=== PATIENT | male | born 1995 | race Caucasian/White ===

== ENCOUNTER 2023-01-04 08:51 | Inpatient (IN) ==
--- NOTE | 2023-01-04 09:34 | CT Scan Report ---
CT OF THE HEAD WITHOUT CONTRAST CLINICAL HISTORY: Aphasia. COMPARISON STUDY: No previous studies for comparison. CT DOSE: 537.48 mGy.cm TECHNIQUE: Helical axial images of the head were obtained without IV contrast. Automated exposure con trol was utilized for the study. A dose lowering technique was utilized adhering to the principles o f ALARA. FINDINGS: No acute intracranial hemorrhage, midline shift or mass effect is present. The ventricular system is unremarkable. The basal cisterns are patent. No extra-axial collections are present. There are no findings to suggest acute dural sinus thrombosis or acute territorial infarct. No significant calvarial abnormalities are present. Visualized portions of the sinuses and mastoid air cells are rebeca ar. IMPRESSION: No acute intracranial findings. ACT 112: Negative or not required by law. Electronically signed by: Eric Tran M.D. 01/04/2023 9:32 AM
--- NOTE | 2023-01-04 10:00 | Emergency Department Note ---
History of Present Illness General Chief complaint: Mental Health Evaluation Stated complaint: LOSS OF BALANCE, SLURRED SPEECH, Time Seen by Provider: 01/04/23 09:07 History of Present Illness Provider complaint: Difficulty speaking 27-year-old male presents emergency department for difficulty speaking. Patient reports he smoked meth at 3 AM yesterday and since then has been having dif ficulty speaking. Patient is here with his mother and family. Mother states she is not sure if the patient truly smoked meth but the patient confirms she did smoke meth at 3 AM. The mother reports she is concerned the patient is having a stroke because he was having difficulty speaking. Mother also reports that the patient has a history of anxiety and has been under a lot of stress. When asked about thoughts of wanting to hurt himself the patient states he is not having thoughts of suicide. When interviewed in private the patient reports has been having thoughts of wanting to hang himself. No access to any firearms. No intentional overdoses. Home Medications Medication Instructions Recorded Confirmed Type escitalopram oxalate 10 mg tablet 10 mg PO DAILY #30 tabs 10/09/22 01/04/23 Rx (Lexapro) hydroxyzine HCl 25 mg tablet 25 mg PO TID 01/04/23 01/04/23 History Allergies Allergy/AdvReac Type Severity Reaction Status Date / Time No Known Allergies Allergy Verified 03/13/22 11:03 Past Med/Surg History Medical History Anxiety Marijuana use No longer abusing 07/2020. Panic attacks Surgical History Status post surgery right arm pin placement Family History Father Colorectal cancer, Onset Age: 40 Mother Gall bladder disease Other Alzheimer disease Diabetes Denies family history of Ovarian cancer Prostate cancer Myocardial infarction Breast cancer Social History Smoking Status: Never smoker Tobacco Type: Cigarettes Age Started Using Tobacco: 19; Second Hand Exposure: Yes; Hx Alcohol Use: Yes Alcohol type: beer Alcohol Intake Frequency: Monthly or Less Hx Substance Use: Yes (cannibas infrequently) Preferred Language: Uzbek Visual Impairment: No Limitations Hearing Ability: Normal Special Events Driver Required: No Beliefs That Will Affect Care: None marital status: Single Current Living Situation: Family current occupational status: employed current occupation: [employer] Feels Safe at Home: Yes Childhood Exposure to Second-Hand Smoke: No caffeine: No during the past year weight has: decreased > 10 lbs Dental Care, Regularly: No Physical Activity Frequency: 3-4 Times per Week Seatbelt Use: always Sunscreen Use: No Gender Identity: Male Physical Exam Vital Signs Vital Signs - 24 hr 01/04/23 08:55 01/04/23 09:12 Temperature 36.5 C Temperature Source Oral Pulse Rate 75 82 Respiratory Rate 16 Respiratory Effort / Characteristics Non-Labored Respiratory Depth Normal Blood Pressure 154/95 H Blood Pressure Mean 114 Pulse Oximetry 96 Oxygen Delivery Method Room Air Sepsis Recent Fever Within 48 Hours No Sepsis New/Unexplained Change in Mental Status No Sepsis Action Taken by Nursing No Action Required Physical Exam GENERAL: He is oriented to person, place, and time. He appears well-developed and well-nourished. He does not appear distressed. HENT: Exam performed. - Head: Normocephalic and atraumatic. - Right Ear: External ear normal. No mastoid erythema - Left Ear: External ear normal. No mastoid erythema - Mouth/Throat: The oropharynx is clear and moist. No trismus in the jaw. No dental abscesses or uvula swelling. No oropharyngeal exudate or tonsillar abscesses. EYES: Conjunctivae and EOM are normal. Pupils are equal, round, and reactive to light. Right eye exhibits no discharge. Left eye exhibits no discharge. No scleral icterus. NECK: Normal range of motion. Neck supple. No JVD present. No spinous process tenderness present. No carotid bruit present. No rigidity. No tracheal deviation and normal range of motion present. No Brudzinski's sign and no Kernig's sign noted. CV: Normal rate, regular rhythm, normal heart sounds and intact distal pulses. There is no peripheral edema. Palpable radial pulses bue. PULM/CHEST: Effort normal and breath sounds normal. No respiratory distress. No stridor. He has no wheezes. He has no rales. - Chest Wall: He exhibits no tenderness. MUSC/SKEL: Normal range of motion. There is no peripheral edema, tenderness or deformity. LYMPH: No cervical adenopathy. NEURO: He is alert and oriented to person, place, and time. He has normal strength. No cranial nerve deficit or sensory deficit. Coordination and gait normal. GCS eye subscore is 4. GCS verbal subscore is 5. GCS motor subscore is 6. Cerebellar tests wnl. NIHSS 0 SKIN: Skin is warm and dry. He is not diaphoretic. PSYCH: He has a normal mood and affect. Behavior is normal. Judgment and thought content normal. Course Course 0907: The patient was evaluated in room A10. A complete history and physical exam was performed 1255: Vital signs stable. Patient medically clear. CT of the head normal. UDS negative for methamphetamines. Patient met with case fitter Sherron and patient has a treatment plan without which she will plan on hanging himself on. It is felt patient would benefit from inpatient treatment. [facility] and patient bed search has begun. 1603: Case signed out to Dr. Saenz awaiting placment. Observation note Indication: Psych eval/placement Patient, with anxiety was first seen at 0907 hrs and the observation time began at 1255 hrs and was necessary in order to have psych evaluation completed . Administered Medications Discontinued Medications Nicotine (Nicotine 14 Mg/24 Hr Patch) Confirm Administered Dose 14 mg TD .STK- MED ONE Stop: 01/04/23 14:12 Last Admin: 01/04/23 14:12 Dose: 14 mg Documented By: NM Medical Decision Making Laboratory Data Attestation: I reviewed the patient's lab results. 01/04/23 09:35 01/04/23 09:35 Lab Results 01/04/23 01/04/23 01/04/23 Range/Units 09:32 09:35 09:35 WBC 11.81 H (4.8-10.8) K/ul RBC 5.50 (4.70-6.10) M/uL Hgb 16.8 (14.0-18.0) g/dl Hct 48.1 (42.0-52.0) % MCV 87.5 (80.0-100.0) fL MCH 30.5 (25.0-34.0) pg MCHC 34.9 (32.0-36.0) g/dL RDW Std Deviation 39.6 (36.4-46.3) fL RDW Coeff of Alexei 12.3 (11.5-14.5) % Plt Count 256 (130-400) K/uL MPV 11.1 (9.4-12.4) fL Immature Gran % (Auto) 0.3 % Neut % (Auto) 75.2 % Lymph % (Auto) 17.5 % [place] % (Auto) 6.3 % Eos % (Auto) 0.3 % Baso % (Auto) 0.4 % Neut # (Auto) 8.88 H (1.40-6.50) K/uL Lymph # (Auto) 2.07 (1.2-3.4) K/uL [place] # (Auto) 0.74 H (0.11-0.59) K/uL Eos # (Auto) 0.03 (0-0.50) K/uL Baso # (Auto) 0.05 (0-0.2) K/uL Immature Gran # (Auto) 0.04 (0.01-0.20) K/uL Sodium 140 (136-145) mmol/L Potassium 4.0 (3.5-5.1) mmol/L Chloride 104 (98-107) mmol/L Carbon Dioxide 27 (21-32) mmol/L Anion Gap 9 (3-11) BUN 10 (6-23) mg/dl Creatinine 0.98 (0.6-1.4) mg/dl Est Cr Clr Drug Dosing 107.1 ml/min Est GFR ( Amer) 122.8 ml/min Est GFR (Non-Af Amer) 106.0 ml/min BUN/Creatinine Ratio 10.2 (10-20) Glucose 99 (70-99(Fasting)) mg/dl Calcium 9.8 (8.6-10.3) mg/dl Total Bilirubin 1.0 (0.2-1.0) mg/dl AST 15 (13-39) U/L ALT 10 (7-52) U/L Alkaline Phosphatase 52 (34-104) U/L Total Protein 7.3 (6.0-8.3) gm/dl Albumin 4.8 (3.4-5.0) gm/dl Globulin 2.5 (2.5-4.0) gm/dl Albumin/Globulin Ratio 1.9 (0.9-2) TSH (0.300-4.500) uIu/ml Urine Color Urine Appearance (Clear) Urine pH (4.5-7.5) Ur Specific [place] (1.000-1.030) Urine Protein (Negative) Urine Glucose (UA) (Negative) Urine Ketones (Negative) Urine Blood (Negative) Urine Nitrite (Negative) Urine Bilirubin (Negative) Urine Urobilinogen (Negative) Ur Leukocyte Esterase (Negative) Salicylates (3.0-30) mg/dl Urine Opiates Screen (Neg) Ur Methadone, Qual (Neg) Acetaminophen (10-30) ug/ml Urine Barbiturates (Neg) Ur Phencyclidine (PCP) (Neg) U Amphetamin/Meth Scrn (Neg) MDMA (Ecstasy) Screen (Neg) U Benzodiazepines Scrn (Neg) Ur Cocaine Metabolite (Neg) U Marijuana (THC) Screen (Neg) Ethyl Alcohol mg/dL (<10.0) mg/dl SARS-CoV-2, RNA, NAAT NEGATIVE (NEGATIVE) 01/04/23 01/04/23 01/04/23 Range/Units 09:35 09:35 09:35 WBC (4.8-10.8) K/ul RBC (4.70-6.10) M/uL Hgb (14.0-18.0) g/dl Hct (42.0-52.0) % MCV (80.0-100.0) fL MCH (25.0-34.0) pg MCHC (32.0-36.0) g/dL RDW Std Deviation (36.4-46.3) fL RDW Coeff of Alexei (11.5-14.5) % Plt Count (130-400) K/uL MPV (9.4-12.4) fL Immature Gran % (Auto) % Neut % (Auto) % Lymph % (Auto) % [place] % (Auto) % Eos % (Auto) % Baso % (Auto) % Neut # (Auto) (1.40-6.50) K/uL Lymph # (Auto) (1.2-3.4) K/uL [place] # (Auto) (0.11-0.59) K/uL Eos # (Auto) (0-0.50) K/uL Baso # (Auto) (0-0.2) K/uL Immature Gran # (Auto) (0.01-0.20) K/uL Sodium (136-145) mmol/L Potassium (3.5-5.1) mmol/L Chloride (98-107) mmol/L Carbon Dioxide (21-32) mmol/L Anion Gap (3-11) BUN (6-23) mg/dl Creatinine (0.6-1.4) mg/dl Est Cr Clr Drug Dosing ml/min Est GFR ( Amer) ml/min Est GFR (Non-Af Amer) ml/min BUN/Creatinine Ratio (10-20) Glucose (70-99(Fasting)) mg/dl Calcium (8.6-10.3) mg/dl Total Bilirubin (0.2-1.0) mg/dl AST (13-39) U/L ALT (7-52) U/L Alkaline Phosphatase (34-104) U/L Total Protein (6.0-8.3) gm/dl Albumin (3.4-5.0) gm/dl Globulin (2.5-4.0) gm/dl Albumin/Globulin Ratio (0.9-2) TSH 1.580 (0.300-4.500) uIu/ml Urine Color Urine Appearance (Clear) Urine pH (4.5-7.5) Ur Specific [place] (1.000-1.030) Urine Protein (Negative) Urine Glucose (UA) (Negative) Urine Ketones (Negative) Urine Blood (Negative) Urine Nitrite (Negative) Urine Bilirubin (Negative) Urine Urobilinogen (Negative) Ur Leukocyte Esterase (Negative) Salicylates < 3.0 L (3.0-30) mg/dl Urine Opiates Screen (Neg) Ur Methadone, Qual (Neg) Acetaminophen < 3 L (10-30) ug/ml Urine Barbiturates (Neg) Ur Phencyclidine (PCP) (Neg) U Amphetamin/Meth Scrn (Neg) MDMA (Ecstasy) Screen (Neg) U Benzodiazepines Scrn (Neg) Ur Cocaine Metabolite (Neg) U Marijuana (THC) Screen (Neg) Ethyl Alcohol mg/dL < 10.0 (<10.0) mg/dl SARS-CoV-2, RNA, NAAT (NEGATIVE) 01/04/23 01/04/23 Range/Units 10:10 10:10 WBC (4.8-10.8) K/ul RBC (4.70-6.10) M/uL Hgb (14.0-18.0) g/dl Hct (42.0-52.0) % MCV (80.0-100.0) fL MCH (25.0-34.0) pg MCHC (32.0-36.0) g/dL RDW Std Deviation (36.4-46.3) fL RDW Coeff of Alexei (11.5-14.5) % Plt Count (130-400) K/uL MPV (9.4-12.4) fL Immature Gran % (Auto) % Neut % (Auto) % Lymph % (Auto) % [place] % (Auto) % Eos % (Auto) % Baso % (Auto) % Neut # (Auto) (1.40-6.50) K/uL Lymph # (Auto) (1.2-3.4) K/uL [place] # (Auto) (0.11-0.59) K/uL Eos # (Auto) (0-0.50) K/uL Baso # (Auto) (0-0.2) K/uL Immature Gran # (Auto) (0.01-0.20) K/uL Sodium (136-145) mmol/L Potassium (3.5-5.1) mmol/L Chloride (98-107) mmol/L Carbon Dioxide (21-32) mmol/L Anion Gap (3-11) BUN (6-23) mg/dl Creatinine (0.6-1.4) mg/dl Est Cr Clr Drug Dosing ml/min Est GFR ( Amer) ml/min Est GFR (Non-Af Amer) ml/min BUN/Creatinine Ratio (10-20) Glucose (70-99(Fasting)) mg/dl Calcium (8.6-10.3) mg/dl Total Bilirubin (0.2-1.0) mg/dl AST (13-39) U/L ALT (7-52) U/L Alkaline Phosphatase (34-104) U/L Total Protein (6.0-8.3) gm/dl Albumin (3.4-5.0) gm/dl Globulin (2.5-4.0) gm/dl Albumin/Globulin Ratio (0.9-2) TSH (0.300-4.500) uIu/ml Urine Color Yellow Urine Appearance Clear (Clear) Urine pH 7.0 (4.5-7.5) Ur Specific [place] 1.011 (1.000-1.030) Urine Protein Negative (Negative) Urine Glucose (UA) Negative (Negative) Urine Ketones 1+ H (Negative) Urine Blood Negative (Negative) Urine Nitrite Negative (Negative) Urine Bilirubin Negative (Negative) Urine Urobilinogen Negative (Negative) Ur Leukocyte Esterase Negative (Negative) Salicylates (3.0-30) mg/dl Urine Opiates Screen Neg (Neg) Ur Methadone, Qual Neg (Neg) Acetaminophen (10-30) ug/ml Urine Barbiturates Neg (Neg) Ur Phencyclidine (PCP) Neg (Neg) U Amphetamin/Meth Scrn Neg (Neg) MDMA (Ecstasy) Screen Neg (Neg) U Benzodiazepines Scrn Neg (Neg) Ur Cocaine Metabolite Neg (Neg) U Marijuana (THC) Screen Pos H (Neg) Ethyl Alcohol mg/dL (<10.0) mg/dl SARS-CoV-2, RNA, NAAT (NEGATIVE) Imaging Data Attestation: I personally reviewed and interpreted this imaging study as follows: My Impression: CT head: No [facility] Radiologist's Impression: Head CT 01/04/23 09:07 CT OF THE HEAD WITHOUT CONTRAST CLINICAL HISTORY: Aphasia. COMPARISON STUDY: No previous studies for comparison. CT DOSE: 537.48 mGy.cm TECHNIQUE: Helical axial images of the head were obtained without IV contrast. Automated exposure control was utilized for the study. A dose lowering technique was utilized adhering to the principles of ALARA. FINDINGS: No acute intracranial hemorrhage, midline shift or mass effect is present. The ventricular system is unremarkable. The basal cisterns are patent. No extra-axial collections are present. There are no findings to suggest acute dural sinus thrombosis or acute territorial infarct. No significant calvarial a bnormalities are present. Visualized portions of the sinuses and mastoid air cells are clear. IMPRESSION: No acute intracranial findings. ACT 112: Negative or not required by law. Electronically signed by: Eric Tran M.D. 01/04/2023 9:32 AM MDM Narrative 0907: The patient was evaluated in room A10. A complete history and physical exam was performed 1255: Vital signs stable. Patient medically clear. CT of the head normal. UDS negative for methamphetamines. Patient met with case fitter Sherron and patient has a treatment plan without which she will plan on hanging himself on. It is felt patient would benefit from inpatient treatment. [facility] and patient bed search has begun. 1603: Case signed out to Dr. Saenz awaiting placment. Observation note Indication: Psych eval/placement Patient, with anxiety was first seen at 0907 hrs and the observation time began at 1255 hrs and was necessary in order to have psych evaluation completed . Impression & Plan Anxiety Discharge Plan Visit Data Chief Complaint: Mental Health Evaluation Stated Complaint: LOSS OF BALANCE, SLURRED SPEECH, ED Provider: Rico Gan Discharge Problem: Anxiety Patient Disposition: Still a Patient Forms Stand Alone Forms: [facility], Suicide Prevention Resources Prescriptions Prescriptions: No Action escitalopram oxalate [Lexapro] 10 mg tablet 10 mg PO DAILY Qty: 30 5RF hydroxyzine HCl 25 mg tablet 25 mg PO TID Referrals Referrals: Yogesh Asif CRNP [Primary Care Provider] -
[2023-01-04 10:41] LABS: Basophils # (auto) 0.05 K/uL (0-0.2); Basophils % (auto) 0.4 %; Eosinophils # (auto) 0.03 K/uL (0-0.50); Eosinophils % (auto) 0.3 %; Hematocrit (blood only) 48.1 % (42.0-52.0); Hemoglobin 16.8 g/dl (14.0-18.0); Immature Granulocytes # (auto) 0.04 K/uL (0.01-0.20); Immature Granulocytes % (auto) 0.3 %; Lymphocytes # (auto) 2.07 K/uL (1.2-3.4); Lymphocytes % (auto) 17.5 %; Mean Corpuscular Hemoglobin 30.5 pg (25.0-34.0); Mean Corpuscular Hgb Conc 34.9 g/dL (32.0-36.0); Mean Corpuscular Volume 87.5 fL (80.0-100.0); Mean Platelet Volume 11.1 fL (9.4-12.4); Monocytes # (auto) 0.74 K/uL (0.11-0.59); Monocytes % (auto) 6.3 %; Neutrophils # (auto) 8.88 K/uL (1.40-6.50); Neutrophils % (auto) 75.2 %; Platelet Count 256 K/uL (130-400); RDW Coefficient of Variation 12.3 % (11.5-14.5); RDW Standard Deviation 39.6 fL (36.4-46.3); White Blood Count 11.81 K/ul (4.8-10.8)
[2023-01-04 10:42] LABS: Appearance Urine Clear (Clear); Bilirubin Urine Negative (Negative); Blood Urine Negative (Negative); Color Urine Yellow; Glucose Urine UA Negative (Negative); Ketones Urine 1+ (Negative); Leukocyte Esterase Urine Negative (Negative); Nitrite Urine Negative (Negative); Protein Urine Negative (Negative); Specific Gravity Urine 1.011 (1.000-1.030); Urobilinogen Urine Negative (Negative)
[2023-01-04 10:51] LABS: Acetaminophen < 3 ug/ml (10-30); Salicylate < 3.0 mg/dl (3.0-30)
[2023-01-04 11:32] LABS: Amphetamines+Metham, Urine Neg (Neg); Barbiturates, Urine Neg (Neg); Benzodiazepine, Urine Neg (Neg); Cocaine, Urine Neg (Neg); MDMA (Ecstacy), Urine Neg (Neg); Methadone, Urine Neg (Neg); Opiate, Urine Neg (Neg); Phencyclidine, Urine Neg (Neg)
[2023-01-04 11:55] LABS: Albumin Level 4.8 gm/dl (3.4-5.0); Calcium 9.8 mg/dl (8.6-10.3)
[2023-01-04 12:01] LABS: Albumin Globulin Ratio 1.9 (0.9-2); BUN Creatinine Ratio 10.2 (10-20); Creatinine Clr Calc Pharmacy 107.1 ml/min; Est GFR (African American) 122.8 ml/min; Globulin 2.5 gm/dl (2.5-4.0); Total Protein 7.3 gm/dl (6.0-8.3)
[2023-01-04] MEDS ORDERED: NICOTINE 14 MG/24 HR PATCH TD ONE (14:11)
[2023-01-04] MEDS ORDERED: BISMUTH SUBSALICYLATE LIQD 236 ML PO PRN (17:08)
[2023-01-04] MEDS ORDERED: ALUMINUM/MAGNESIUM SUSP 30 ML UDC PO PRN (17:08)
[2023-01-04] MEDS ORDERED: SODIUM CHLORIDE 0.65% NA SOLN 45 ML (OCEAN) PRN (17:08)
[2023-01-04] MEDS ORDERED: hydrOXYzine HCl 25 MG TAB PO PRN ×2 (17:08)
[2023-01-04] MEDS ORDERED: MAGNESIUM HYDROXIDE SUSP 30 ML UDC PO PRN (17:08)
[2023-01-04] MEDS ORDERED: ACETAMINOPHEN 325 MG TAB PO PRN (17:08)
[2023-01-04] MEDS: ESCITALOPRAM OXALATE 10 MG TAB PO SCH (19:21)
[2023-01-04] MEDS: OLANZapine 5 MG TABLET PO SCH (21:34)
[2023-01-04] MEDS ORDERED: NICOTINE POLACRILEX 2 MG GUM MT PRN (21:44)
[2023-01-05] MEDS: ESCITALOPRAM OXALATE 10 MG TAB PO SCH (08:00)
[2023-01-05] MEDS: NICOTINE 21 MG/24 HR TDSY TD SCH (08:00)
--- NOTE | 2023-01-05 10:55 | History & Physical ---
Date of Service January 05, 2023 Impression / Recommendations Protective Factors Assessment Employed: Yes ([employer]) Psychiatric History Identifying Data MICHAEL ALLISON is a 27-year-old M who currently lives in [] [alone] with [], has a history of [], and was admitted on 01/04/23 16:06 on a [201 voluntary] [302 involuntary] commitment for []. Chief Complaint "[]". Past Psychiatric History Current Psychiatric Diagnosis: Unspecified Mood Disorder History of Previous Suicide Attempt: Yes ("Years ago") Allergies Allergy/AdvReac Type Severity Reaction Status Date / Time No Known Allergies Allergy Verified 03/13/22 11:03 Home Medications Medication Instructions Recorded Confirmed Type escitalopram oxalate 10 mg tablet 10 mg PO DAILY #30 tabs 10/09/22 01/04/23 Rx (Lexapro) hydroxyzine HCl 25 mg tablet 25 mg PO TID 01/04/23 01/04/23 History Family History Family History of: Depression and Anxiety Family Mental Health History Comment: Maternal side of family Alcohol History Hx of Alcohol Use Over the Past 12 Months: Yes (Intermittent) AUDIT Total Score: 0 Smoking Use Have You Smoked or Used Tobacco Products in the Last 30 Days: Yes tobacco type: cigarettes and e-cigarettes Smoking Status: Current every day smoker Smoking packs per day: 1 Substance History Hx of Prescription Med Misuse Over the Past 12 Months: No Hx of Over the Counter Med Misuse Over the Past 12 Months: No Hx of Inhalent Misuse Over the Past 12 Months: No Hx of Organic Substance Use Over the Past 12 Months: Yes (Medical Cannabis) Hx of Illegal Substances/Street Drug Use Over Past 12 Months: No Problems as a Result of Past Substance Use: None Identified Personal History Living Arrangements: Apartment Highest Grade Completed: Some College Beliefs That Will Affect Care: None Patient History Medical History Anxiety Marijuana use No longer abusing 07/2020. Panic attacks Surgical History Status post surgery right arm pin placement Family History Father Colorectal cancer, Onset Age: 40 Mother Gall bladder disease Other Alzheimer disease Diabetes Denies family history of Ovarian cancer Prostate cancer Myocardial infarction Breast cancer Social History Smoking Status: Current every day smoker Tobacco Type: Cigarettes Age Started Using Tobacco: 19; Second Hand Exposure: Yes; Hx Alcohol Use: Yes Alcohol type: beer Alcohol Intake Frequency: Monthly or Less Hx Substance Use: Yes (cannibas infrequently) Preferred Language: Italian Communication Ability: Effective Visual Impairment: No Limitations Hearing Ability: Normal Qc Manager Required: No Beliefs That Will Affect Care: None marital status: Single Current Living Situation: Family current occupational status: employed 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 Feels Safe at Home: Yes Childhood Exposure to Second-Hand Smoke: No caffeine: No during the past year weight has: decreased > 10 lbs Dental Care, Regularly: No Physical Activity Frequency: 3-4 Times per Week Seatbelt Use: always Sunscreen Use: No Gender Identity: Male Assistive Devices: None Physical Exam Vital Signs (Past 24 Hours): Last Vital Signs Temp 36.5 C 01/05/23 06:43 Pulse 76 01/05/23 06:44 Resp 16 01/05/23 06:43 BP 127/86 01/05/23 06:44 Pulse Ox 97 01/04/23 17:33 O2 Del Method Room Air 01/04/23 17:33 Results & Data ([facility]) Laboratory Results Laboratory Results - last 24 hr 01/04/23 01/04/23 01/04/23 09:35 09:35 10:10 Sodium 140 Potassium 4.0 Chloride 104 Carbon Dioxide 27 Anion Gap 9 BUN 10 Creatinine 0.98 Est Cr Clr Drug Dosing 107.1 Est GFR ( Amer) 122.8 Est GFR (Non-Af Amer) 106.0 BUN/Creatinine Ratio 10.2 Glucose 99 Calcium 9.8 Total Bilirubin 1.0 AST 15 ALT 10 Alkaline Phosphatase 52 Total Protein 7.3 Albumin 4.8 Globulin 2.5 Albumin/Globulin Ratio 1.9 TSH 1.580 Urine Opiates Screen Neg Ur Methadone, Qual Neg Urine Barbiturates Neg Ur Phencyclidine (PCP) Neg U Amphetamin/Meth Scrn Neg MDMA (Ecstasy) Screen Neg U Benzodiazepines Scrn Neg Ur Cocaine Metabolite Neg U Marijuana (THC) Screen Pos H U Marijuana THC Carboxy Drug Screen Comment 01/04/23 10:10 Sodium Potassium Chloride Carbon Dioxide Anion Gap BUN Creatinine Est Cr Clr Drug Dosing Est GFR ( Amer) Est GFR (Non-Af Amer) BUN/Creatinine Ratio Glucose Calcium Total Bilirubin AST ALT Alkaline Phosphatase Total Protein Albumin Globulin Albumin/Globulin Ratio TSH Urine Opiates Screen Ur Methadone, Qual Urine Barbiturates Ur Phencyclidine (PCP) U Amphetamin/Meth Scrn MDMA (Ecstasy) Screen U Benzodiazepines Scrn Ur Cocaine Metabolite U Marijuana (THC) Screen U Marijuana THC Carboxy Pending Drug Screen Comment Pending Current Inpatient Medications Current Inpatient Medications: Current Inpatient Medications Acetaminophen (Acetaminophen 325 Mg Tab) 650 mg PO Q4H PRN PRN Reason: Headache or Minor Fever Stop: 02/03/23 17:07 Al Hydrox/Mg Hydrox/Simethicone (Aluminum/Magnesium Susp 30 Ml Udc) 30 ml PO Q4H PRN PRN Reason: GI Upset Stop: 02/03/23 17:07 Bismuth Subsalicylate (Bismuth Subsalicylate Liqd 236 Ml) 15 ml PO PRN PRN PRN Reason: Loose Stool Stop: 02/03/23 17:07 Escitalopram Oxalate (Escitalopram Oxalate 10 Mg Tab) 10 mg PO QAM [facility] Stop: 02/03/23 18:59 Last Admin: 01/05/23 08:00 Dose: 10 mg Hydroxyzine HCl (Hydroxyzine Hcl 25 Mg Tab) 50 mg PO HSZ PRN PRN Reason: Insomnia Stop: 02/03/23 17:07 Hydroxyzine HCl (Hydroxyzine Hcl 25 Mg Tab) 25 mg PO Q4H PRN PRN Reason: Anxiety Stop: 02/03/23 17:07 Magnesium Hydroxide (Magnesium Hydroxide Susp 30 Ml Udc) 30 ml PO DAILY PRN PRN Reason: Constipation Stop: 02/03/23 17:07 Miscellaneous (Remove Nicoderm Patch) 1 each N/A DAILY@0859 [facility] Stop: 02/04/23 08:58 Last Admin: 01/05/23 08:01 Dose: Not Given Nicotine (Nicotine 21 Mg/24 Hr Tdsy) 21 mg TD QAM [facility] Stop: 02/04/23 08:59 Last Admin: 01/05/23 08:00 Dose: 21 mg Nicotine Polacrilex (Nicotine Polacrilex 2 Mg Gum) 1 piece MT PRN PRN PRN Reason: nicotine cravings Stop: 02/03/23 21:43 Last Admin: 01/04/23 21:53 Dose: 1 piece Olanzapine (Olanzapine 5 Mg Tablet) 5 mg PO HS JOON Stop: 02/03/23 21:59 Last Admin: 01/04/23 21:34 Dose: 5 mg Sodium Chloride (Sodium Chloride 0.65% Na Soln 45 Ml (Brule)) 1 - 2 sprays NA PRN PRN PRN Reason: Nasal Dryness/Congestion Stop: 02/03/23 17:07
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
[2023-01-05] MEDS: OLANZapine 5 MG TABLET PO SCH (21:56)
[2023-01-06] MEDS: ESCITALOPRAM OXALATE 10 MG TAB PO SCH (08:21)
[2023-01-06] MEDS: NICOTINE 21 MG/24 HR TDSY TD SCH (08:21)
[2023-01-06 08:48] LABS: Marijuana Quant, GCMS Urine 3522 ng/mL (<5)
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
[2023-01-07] MEDS ORDERED: ESCITALOPRAM OXALATE 20 MG TAB PO SCH (09:00)
== END 2023-01-06 10:37 | disposition home or self-care (01) | DRG 880 ==
LOC: ED 08:51 → 3S 16:06

== ENCOUNTER 2024-04-20 14:21 | Observation (INO) ==
[2024-04-20] MEDS: SODIUM CHLORIDE 0.9% 1,000 ML IV ONE (15:12)
[2024-04-20] MEDS: ONDANSETRON INJ 2 MG/ML 2 ML VIAL IV STA (15:12)
[2024-04-20 15:39] LABS: Basophils # (auto) 0.07 K/uL (0.00-0.20); Basophils % (auto) 0.7 %; Eosinophils # (auto) 0.05 K/uL (0.00-0.50); Eosinophils % (auto) 0.5 %; Hematocrit (blood only) 48.3 % (42.0-52.0); Hemoglobin 16.9 g/dl (14.0-18.0); Immature Granulocytes # (auto) 0.03 K/uL (0.01-0.20); Immature Granulocytes % (auto) 0.3 %; Lymphocytes # (auto) 1.49 K/uL (1.20-3.40); Lymphocytes % (auto) 15.2 %; Mean Corpuscular Hemoglobin 28.9 pg (25.0-34.0); Mean Corpuscular Volume 82.7 fL (80.0-100.0); Mean Platelet Volume 11.1 fL (9.4-12.4); Monocytes # (auto) 0.77 K/uL (0.11-0.59); Monocytes % (auto) 7.9 %; Neutrophils # (auto) 7.38 K/uL (1.40-6.50); Neutrophils % (auto) 75.4 %; Platelet Count 266 K/uL (130-400); RDW Coefficient of Variation 12.1 % (11.5-14.5); RDW Standard Deviation 36.7 fL (36.4-46.3); Red Blood Count 5.84 M/uL (4.70-6.10); White Blood Count 9.79 K/ul (4.8-10.8)
--- NOTE | 2024-04-20 15:42 | XRay Report ---
PA CHEST WITH ABDOMINAL SERIES CLINICAL HISTORY: Vomiting. Postprandial abdominal pain. FINDINGS: A PA chest radiograph is compared to study dated 04/16/2024. The cardiomediastinal silhouette is unrema rkable. The lungs and pleural spaces are clear. No pneumothorax is seen. The bony thorax is grossly i ntact. Supine and erect abdominal radiographs are correlated with abdominal CT dated 04/11/2024. There is a n onobstructed abdominal bowel gas pattern. No evidence of intraperitoneal free air is seen. There are no abnormal abdominal calcifications. The lumbosacral spine and bony pelvis appear intact. IMPRESSION: 1. No active disease in the chest. 2. Nonobstructed abdominal bowel gas pattern. ACT 112: Negative or not required by law. Electronically signed by: Henry Burleson M.D. 04/20/2024 3:41 PM
[2024-04-20 15:46] LABS: Albumin Level 4.6 gm/dl (3.4-5.0); BUN Creatinine Ratio 9.5 (10-20); Bilirubin Direct 0.2 mg/dl (0-0.2); Bilirubin,Total 0.7 mg/dl (0.2-1.0); Calcium 9.2 mg/dl (8.6-10.3); Creatinine Clr Calc Pharmacy 98.6 ml/min; Est GFR (African American) 99.5 ml/min; Est GFR (Non-African American) 85.8 ml/min; Potassium 3.1 mmol/L (3.5-5.1); Total Protein 7.2 gm/dl (6.0-8.3)
--- NOTE | 2024-04-20 16:22 | History & Physical Report ---
Date of Service April 20, 2024 Assessment & Plan (1) Epigastric abdominal pain: Plan: Admit to med/telemetry Currently stable and nontoxic-appearing Has been having ongoing epigastric abdominal pain exacerbated after eating with associated nonbloody nausea and vomiting Pain is improved after vomiting Patient recently underwent EGD at [facility] on 04/14/2024 and was diagnosed with gastritis/esophagitis Patient also has a history of cannabis hyperemesis syndrome with last use on 04/16/2024 after arriving home from [facility] Symptoms are consistent with his previous episodes, no acute findings on x-ray of the chest/abdomen/pelvis today At this time his symptoms are likely multifactorial including cannabis hyperemesis syndrome, gastritis, and esophagitis Status post 4 mg IV Zofran and 1 L NSS in the ED Was started on maintenance NSS at 125 mL/h x 1 bag, will allow this to run for now as he is without signs of SERGEY Will start twice daily IV famotidine and pantoprazole Will give a dose of p.o. Carafate now, continue 4 times daily moving forward Will obtain EKG at the time of admission as he is hypokalemic, if QTc is WNL will order as needed Haldol Will need to continue to stressed the importance of marijuana and tobacco cessation, patient understands he needs to avoid these moving forward to prevent recurrence Out of bed for DVT prophylaxis N.p.o. except meds until pain improves, can then do a trial of clears AM CBC, CMP, mag (2) Gastritis: Plan: See epigastric abdominal pain plan (3) Cannabinoid hyperemesis syndrome: Plan: Will order topical capsaicin applied to the abdomen to see if this improves symptoms See epigastric abdominal pain plan (4) Hypokalemia: Plan: Potassium noted to be 3.1 today EKG in magnesium level were ordered at time of admission, will follow when obtained Will start with 3 bags of 10 mEq IV KCl on admission, will hold p.o. KCl at this time as this will likely exacerbate his current GI issues If needed can order ongoing maintenance fluids with addition of KCl Continue to monitor on order dispatcher a.m. electrolytes (5) Nausea & vomiting: Plan: If QTc is stable will order as needed Haldol as IV Zofran was ineffective (6) Bipolar 1 disorder: Plan: Denies suicidal and homicidal ideations Continue home benztropine, BuSpar, Lexapro, and oxcarbazepine Plan The patient was discussed with Dr. Fernández at the time of the admission History of Present Illness Chief Complaint: Recurrent epigastric pain, nausea/vomiting Primary Care Provider: BEREKET PCP Naresh is a 28-year-old male with a past medical history significant for bipolar 1 disorder, panic disorder, obsessive-compulsive disorder, cannabinoid hyperemesis syndrome, gastritis who presented to the [facility] ED on 04/20/2024 with complaints of ongoing epigastric abdominal pain exacerbated with after eating and recurrent nausea/vomiting. He was noted to be hypertensive on arrival at 156/118 and tachycardic at 97 but otherwise stable. Labs including CBC and CMP were significant for potassium of 3.1. Chest/abdominal x-ray was read as negative for acute findings in the chest and a nonobstructive abdominal bowel gas pattern. Prior to admission the patient was given 4 mg IV Zofran and 2 L normal saline. Patient was lying in bed in mild distress due to abdominal pain at the time of exam. He states that he was initially seen in the [facility] ED on 04/13/2024 due to the same symptoms he is experiencing today. He was admitted from 04/13/2024 - 04/15/2024 and underwent EGD on 04/14/2024. He explains that he was told findings were consistent with gastritis/esophagitis but that they could not rule out cannabis hyperemesis syndrome as an aggravating factor to his pain. When asked, he states that he last smoked marijuana on 04/16/2024 after arriving home from his last admission. Since then he has been having ongoing epigastric abdominal pain exacerbated with eating and recurrent nonbloody emesis. He denies coffee-ground emesis. States he recently quit smoking and has been able to continue taking his home medications as prescribed. States that his abdominal pain stays in the epigastric region and does not radiate. Denies recent fever/chills, chest pain, dysuria/hematuria, diarrhea/melena and recent trauma. Denies suicidal or homicidal ideations. When asked, he states that he was given Haldol while at [facility] and this mildly improved symptoms. Please refer to Dr. Fernández's Attestation for any changes to the treatment plan Allergies Allergy/AdvReac Type Severity Reaction Status Date / Time No Known Allergies Allergy Verified 04/16/24 18:58 Home Medications Medication Instructions Recorded Confirmed Type buspirone 10 mg tablet 10 mg PO BID 04/11/24 04/20/24 History olanzapine 20 mg tablet 20 mg PO HS 04/11/24 04/20/24 History oxcarbazepine 600 mg tablet 600 mg PO BID 04/11/24 04/20/24 History benztropine 1 mg tablet 1 mg PO BID 04/16/24 04/20/24 History dicyclomine 20 mg tablet 20 mg PO QID #20 tabs 04/16/24 04/20/24 Rx escitalopram oxalate 20 mg tablet 20 mg PO DAILY 04/16/24 04/20/24 History famotidine 20 mg tablet 20 mg PO BID #60 tabs 04/16/24 04/20/24 Rx nicotine (polacrilex) 2 mg gum 2 mg PO DIRECTED PRN .nicotine 04/16/24 04/20/24 History craving omeprazole 20 mg capsule,delayed 20 mg PO BID 04/16/24 04/20/24 History release promethazine 25 mg tablet 25 mg PO Q6H PRN nausea and 04/16/24 04/20/24 Rx vomiting #14 tabs sucralfate 100 mg/mL oral 10 ml PO QID #420 mL 04/16/24 04/20/24 Rx suspension (Carafate) Past Med/Surg History Problem List (Updated 04/20/24 @ 18:37 by Rico Gan MD) Hypokalemia (Acute) Epigastric abdominal pain (Acute) Gastritis (Acute) Dehydration (Acute) Cannabinoid hyperemesis syndrome (Acute) Dehydration (Acute) Nausea & vomiting (Acute) Abdominal pain (Acute) Bipolar 1 disorder Panic disorder provisional Obsessive compulsive disorder (Acute) provisional Medical History Marijuana use No longer abusing 07/2020. Surgical History Status post surgery right arm pin placement Family History Father Colorectal cancer, Onset Age: 40 Mother Gall bladder disease Other Alzheimer disease Diabetes Denies family history of Ovarian cancer Prostate cancer Myocardial infarction Breast cancer Social History Smoking Status: Current some day smoker Tobacco Type: Cigarettes and E-cigarettes / Vaping Age Started Using Tobacco: 19; Cigarettes Per Day: 10; Second Hand Exposure: Yes; Do You Dip or Chew Tobacco: No; Hx Alcohol Use: No Hx Substance Use: Yes Preferred Language: Polish Communication Ability: Effective Visual Impairment: No Limitations Hearing Ability: Normal [place] Required: No Beliefs That Will Affect Care: None marital status: Single Current Living Situation: Alone current occupational status: employed current occupation: [employer] Other Information That Helps Us Care for You: No Feels Safe at Home: Yes Safety Concerns: Feels Safe At This Time Childhood Exposure to Second-Hand Smoke: No caffeine: No during the past year weight has: decreased > 10 lbs Dental Care, Regularly: No Physical Activity Frequency: 3-4 Times per Week Seatbelt Use: always Sunscreen Use: No Gender Identity: Male Assistive Devices: None Physical Exam Physical Exam: Physical Exam: General: In mild distress due to pain, stated age, well-nourished, non-toxic appearing HEENT: Normocephalic, atraumatic, no scleral icterus, pupils around round, symmetrical, and reactive to light, dry mucus membranes, trachea midline, no thyromegaly Chest/Pulm: No respiratory distress, symmetrical chest expansion, clear breath sounds throughout Cardiac: RRR, no murmurs noted Abdomen: Negative for ascites and bruising, normoactive bowel sounds, soft, tender to palpation in the epigastric region without rebound tenderness, otherwise non-tender Musculoskeletal: Symmetrical and without signs of acute trauma, upper and lower extremities with full ROM, no atrophy, spasticity, or flaccidity Extremities: Radial, dorsalis pedis, and posterior tibial pulses are intact and symmetrical, no edema noted in the BL LE's Skin: Warm, dry, no rashes , lesions, or scars noted Neuro: Alert and oriented to person, place, month, year, and president, no focal defects, no tremors noted Psych: No acute distress, calm and cooperative during the exam Results & Data Results & Data Vital Signs (Past 12 Hours) Vital Signs Temp Pulse Resp BP Pulse Ox O2 Del Method 04/20/24 16:03 98 04/20/24 16:00 141/94 H 04/20/24 16:00 141/94 H 04/20/24 15:39 88 16 97 04/20/24 15:30 86 20 98 04/20/24 15:30 163/107 H 04/20/24 15:30 163/107 H 04/20/24 15:30 163/107 H 04/20/24 15:18 97 H 17 98 04/20/24 15:03 Room Air 04/20/24 15:00 149/119 H 04/20/24 14:51 92 H 21 95 04/20/24 14:50 159/123 H 04/20/24 14:50 159/123 H 04/20/24 14:34 36.9 C 122 H 18 156/118 H 95 Room Air Laboratory Results Abnormal lab results 04/20/24 Range/Units 15:13 Neut # (Auto) 7.38 H (1.40-6.50) K/uL [place] # (Auto) 0.77 H (0.11-0.59) K/uL Potassium 3.1 L (3.5-5.1) mmol/L Anion Gap 16 H (3-11) BUN/Creatinine Ratio 9.5 L (10-20) Glucose 106 H (70-99(Fasting)) mg/dl Lipase 9 L (11-82) U/L Diagnostic Findings Chest/Abdomen X-ray 04/20/24 15:03 PA CHEST WITH ABDOMINAL SERIES CLINICAL HISTORY: Vomiting. Postprandial abdominal pain. FINDINGS: A PA chest radiograph is compared to study dated 04/16/2024. The cardiomediastinal silhouette is unremarkable. The lungs and pleural spaces are clear. No pneumothorax is seen. The bony thorax is grossly intact. Supine and erect abdominal radiographs are correlated with abdominal CT dated 04/11/2024. There is a nonobstructed abdominal bowel gas pattern. No evidence of intraperitoneal free air is seen. There are no abnormal abdominal calcifications. The lumbosacral spine and bony pelvis appear intact. IMPRESSION: 1. No active disease in the chest. 2. Nonobstructed abdominal bowel gas pattern. ACT 112: Negative or not required by law. Electronically signed by: Henry Burleson M.D. 04/20/2024 3:41 PM ECG Additional Comments: Will obtain at the time of the admission Code Status & VTE Plan Code Status Full code VTE Prophylaxis Plan VTE Prophylaxis will be ordered: Yes Supervising Physician Co-Signing Physician Notes Patient seen and examined, chart reviewed, case discussed with Josias Leblanc PA-C and I agree with the assessment and plan as above except as otherwise noted Labs and images reviewed 28-year-old male history of bipolar 1 disorder, panic disorder, OCD, cannabinoid hyperemesis, and suicidality who presents to the ER 04/20 with persistent epigastric pain and inability to tolerate p.o while in the ER patient was given volume resuscitation, Pepcid, Protonix, and Zofran continued inability to tolerate p.o. and nausea/nonbloody vomiting. He is hypokalemic at 3.1, he does not have an SERGEY. Flatplate shows nonobstructed bowel gas. Does have a history of marijuana use. Does not show evidence of acute abdomen. Seen at bedside. Nausea is improved following above. He reports that he did have gastritis on his EGD. Nausea is much worse after meals. Does find that hot showers help wit h the nausea. Abdomen is soft/nontender at time bedside assessment. History of gastritis symptoms; continue Pepcid/Protonix/GI cocktail, Zofran. Patient's home olanzapine/oxcarbazepine/BuSpar are continued. QT is not prolonged. Will trial Haldol 2.5 mg x 1 for marijuana hyperemesis. Agree with above PG Care Time/CCT Total # of Minutes Spent Total Time Spent with Patient: Total time spent is greater than 50% in coordination of care (as documented) at patient's floor/unit and/or counseling patient: Coding [place] [address] INT INP/OBS CARE 3/75MIN Patient Type Established Medical Decision Making High Complexity Diagnoses Epigastric abdominal pain R10.13 Gastritis K29.00 Chronicity: acute Gastritis bleeding: without bleeding Gastritis type: unspecified gastritis Cannabinoid hyperemesis syndrome R11.2; F12.90 Hypokalemia E87.6 Nausea & vomiting R11.2 Vomiting type: unspecified Bipolar 1 disorder F31.9 (2) Gastritis Chronicity: acute Gastritis bleeding: without bleeding Gastritis type: unspecified gastritis Qualified Code(s): K29.00 - Acute gastritis without bleeding (5) Nausea & vomiting Vomiting type: unspecified Qualified Code(s): R11.2 - Nausea with vomiting, unspecified
[2024-04-20] MEDS: SODIUM CHLORIDE 0.9% 1,000 ML IV SCH (16:28)
[2024-04-20] MEDS ORDERED: CAPSAICIN CR 0.075% 60 GM TUBE EXT PRN (16:57)
[2024-04-20] MEDS: PANTOprazole 40 MG in SYRINGE 0 ML IV ONE (16:59)
[2024-04-20] MEDS: FAMOTIDINE 20MG IV PUSH 20 MG/5 ML SYR IV STA (16:59)
[2024-04-20] MEDS: SUCRALFATE 1 GM TAB PO STA (16:59)
[2024-04-20] MEDS: POTASSIUM CHLORIDE / WTR 10 MEQ/100 ML PLCT IV SCH (17:00)
[2024-04-20] MEDS: MoRPHine SULFATE 2 MG/ML CARP IV STA (17:35)
--- NOTE | 2024-04-20 18:37 | Emergency Department Note ---
History of Present Illness General Chief complaint: Abdominal Pain Stated complaint: NAUSEA, ABDOMINAL PAIN, POSSIBLE GASTRITIS Time Seen by Provider: 04/20/24 15:01 History of Present Illness Provider Complaint: + nausea, + vomiting, + diarrhea and + abdominal pain Onset (ago): day(s) 8 Description of Vomiting: no bilious, no blood-streaked, no bloody or no coffee grounds Description of Diarrhea: no tarry, no blood-streaked or no bloody (bright red) Associated Abdominal Pain: Yes Location of pain: + diffuse Severity: moderate Maximum Pain Intensity: 8 Current Pain Intensity: 8 Quality: + cramping, + stabbing, + aching, + sharp and + dull Pain Consistency: + intermittent Relieved By: + none Exacerbated By: + eating and + vomiting Context: + marijuana use; no foreign travel, no recent antibiotic use, no alcohol abuse, no anticoagulant use or no self induced Associated symptoms: no myalgias, no chest pain, no cough, no fever/chills, no headaches or no dysuria Home Medications Medication Instructions Recorded Confirmed Type buspirone 10 mg tablet 10 mg PO BID 04/11/24 04/20/24 History olanzapine 20 mg tablet 20 mg PO HS 04/11/24 04/20/24 History oxcarbazepine 600 mg tablet 600 mg PO BID 04/11/24 04/20/24 History benztropine 1 mg tablet 1 mg PO BID 04/16/24 04/20/24 History dicyclomine 20 mg tablet 20 mg PO QID #20 tabs 04/16/24 04/20/24 Rx escitalopram oxalate 20 mg tablet 20 mg PO DAILY 04/16/24 04/20/24 History famotidine 20 mg tablet 20 mg PO BID #60 tabs 04/16/24 04/20/24 Rx nicotine (polacrilex) 2 mg gum 2 mg PO DIRECTED PRN .nicotine 04/16/24 04/20/24 History craving omeprazole 20 mg capsule,delayed 20 mg PO BID 04/16/24 04/20/24 History release promethazine 25 mg tablet 25 mg PO Q6H PRN nausea and 04/16/24 04/20/24 Rx vomiting #14 tabs sucralfate 100 mg/mL oral 10 ml PO QID #420 mL 07/04/24 07/08/24 Rx suspension (Carafate) Allergies Allergy/AdvReac Type Severity Reaction Status Date / Time No Known Allergies Allergy Verified 04/16/24 18:58 Past Med/Surg History Problem List (Updated 04/20/24 @ 18:37 by Rico Gan MD) Hypokalemia (Acute) Epigastric abdominal pain (Acute) Gastritis (Acute) Dehydration (Acute) Cannabinoid hyperemesis syndrome (Acute) Dehydration (Acute) Nausea & vomiting (Acute) Abdominal pain (Acute) Bipolar 1 disorder Panic disorder provisional Obsessive compulsive disorder (Acute) provisional Medical History Marijuana use No longer abusing 07/2020. Surgical History Status post surgery right arm pin placement Family History Father Colorectal cancer, Onset Age: 40 Mother Gall bladder disease Other Alzheimer disease Diabetes Denies family history of Ovarian cancer Prostate cancer Myocardial infarction Breast cancer Social History Smoking Status: Current every day smoker Tobacco Type: Cigarettes Age Started Using Tobacco: 19; Second Hand Exposure: Yes; Do You Dip or Chew Tobacco: No; Hx Alcohol Use: Yes Alcohol type: beer Alcohol Intake Frequency: Monthly or Less Hx Substance Use: Yes (cannibas infrequently) Preferred Language: Icelandic Communication Ability: Effective Visual Impairment: No Limitations Hearing Ability: Normal [employer] Helper Required: No Beliefs That Will Affect Care: None marital status: Single Current Living Situation: Family current occupational status: employed 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 Feels Safe at Home: Yes Childhood Exposure to Second-Hand Smoke: No caffeine: No during the past year weight has: decreased > 10 lbs Dental Care, Regularly: No Physical Activity Frequency: 3-4 Times per Week Seatbelt Use: always Sunscreen Use: No Gender Identity: Male Assistive Devices: None Physical Exam 2 Vital Signs: Vital Signs - 24 hr 04/20/24 14:34 04/20/24 14:50 04/20/24 14:50 Temperature 36.9 C Temperature Source Temporal Artery Sc an Pulse Rate 122 H Pulse Rate from Sp O2 Sensor Respiratory Rate 18 Respiratory Effort / Characteristics Non-Labored Sponta neous Respiratory Depth Normal Blood Pressure 156/118 H 159/123 H 159/123 H Blood Pressure Sun n 130 132 132 Blood Pressure Pos ition Sitting Pulse Oximetry 95 Oxygen Delivery Me thod Room Air Sepsis Recent Feve r Within 48 Hours No Sepsis New/Unexpla ined Change in Men ro Status No Sepsis Action Take n by Nursing No Action Required 04/20/24 14:51 04/20/24 15:00 04/20/24 15:03 Temperature Temperature Source Pulse Rate 92 H Pulse Rate from Sp O2 Sensor 92 H Respiratory Rate 21 Respiratory Effort / Characteristics Respiratory Depth Blood Pressure 149/119 H Blood Pressure Sun n 131 Blood Pressure Pos ition Pulse Oximetry 95 Oxygen Delivery Me thod Room Air Sepsis Recent Feve r Within 48 Hours Sepsis New/Unexpla ined Change in Men ro Status Sepsis Action Take n by Nursing 04/20/24 15:18 04/20/24 15:30 04/20/24 15:30 Temperature Temperature Source Pulse Rate 97 H Pulse Rate from Sp O2 Sensor 96 H Respiratory Rate 17 Respiratory Effort / Characteristics Respiratory Depth Blood Pressure 163/107 H 163/107 H Blood Pressure Sun n 127 127 Blood Pressure Pos ition Pulse Oximetry 98 Oxygen Delivery Me thod Sepsis Recent Feve r Within 48 Hours Sepsis New/Unexpla ined Change in Men ro Status Sepsis Action Take n by Nursing 04/20/24 15:30 04/20/24 15:30 04/20/24 15:39 Temperature Temperature Source Pulse Rate 86 88 Pulse Rate from Sp O2 Sensor 89 86 Respiratory Rate 20 16 Respiratory Effort / Characteristics Respiratory Depth Blood Pressure 163/107 H Blood Pressure Sun n 127 Blood Pressure Pos ition Pulse Oximetry 98 97 Oxygen Delivery Me thod Sepsis Recent Feve r Within 48 Hours Sepsis New/Unexpla ined Change in Men ro Status Sepsis Action Take n by Nursing 04/20/24 16:00 04/20/24 16:00 04/20/24 16:03 Temperature Temperature Source Pulse Rate Pulse Rate from Sp O2 Sensor 105 H Respiratory Rate Respiratory Effort / Characteristics Respiratory Depth Blood Pressure 141/94 H 141/94 H Blood Pressure Sun n 111 111 Blood Pressure Pos ition Pulse Oximetry 98 Oxygen Delivery Me thod Sepsis Recent Feve r Within 48 Hours Sepsis New/Unexpla ined Change in Men ro Status Sepsis Action Take n by Nursing 04/20/24 17:42 Temperature Temperature Source Pulse Rate 84 Pulse Rate from Sp O2 Sensor Respiratory Rate 18 Respiratory Effort / Characteristics Respiratory Depth Blood Pressure 177/84 H Blood Pressure Sun n Blood Pressure Pos ition Pulse Oximetry 99 Oxygen Delivery Me thod Room Air Sepsis Recent Feve r Within 48 Hours Sepsis New/Unexpla ined Change in Men ro Status Sepsis Action Take n by Nursing Physical Exam: Physical Exam GENERAL: She is oriented to person, place, and time. She appears well-developed and well-nourished. She does not appear distressed. HENT: Exam performed. -Head: Normocephalic and atraumatic. -Right Ear: External ear normal. No mastoid erythema -Left Ear: External ear normal. No mastoid erythema -Mouth/Throat: The oropharynx is clear and moist. No trismus in the jaw. No dental abscesses or uvula swelling. No oropharyngeal exudate or tonsillar abscesses. EYES: Conjunctivae and EOM are normal.Right eye exhibits no discharge. Left eye exhibits no discharge. No scleral icterus. NECK: Normal range of motion. Neck supple. No JVD present. No tracheal deviation and normal range of motion present. CV: Normal rate, regular rhythm, normal heart sounds and intact distal pulses. There is no peripheral edema. Palpable radial pulses bue. PULM/CHEST: Effort normal and breath sounds normal. No respiratory distress. No stridor. She has no wheezes. She has no rales. -Chest Wall: She exhibits no tenderness. ABD: The abdomen is soft. Bowel sounds are normal. She has no distension. No mass is present. There is no tenderness. There is no rebound, no guarding, no Barry's sign and no tenderness at McBurney's point. Rovsig negative MUSC/SKEL: Normal range of motion. There is no peripheral edema, tenderness or deformity. NEURO: Motor and sensation grossly intact. SKIN: Skin is warm and dry. She is not diaphoretic. PSYCH: She has a normal mood and affect. Behavior is normal. Judgment and thought content normal. Course Course 1501: The patient was evaluated in room C6. A complete history and physical exam was performed Cardiac monitoring: An order was placed for continuous cardiac monitoring. The monitor shows a rate of 90 with sinus rhythm interpreted by me 1612: Vital signs stable. Labs and imaging within normal limits. Patient states he cannot go home and keep vomiting. Patient be admitted to the [facility] service for intractable nausea vomiting. Administered Medications Sodium Chloride (Nss) 1,000 mls @ 125 mls/hr IV .Q8H JOON Stop: 04/21/24 00:14 Last Admin: 04/20/24 16:28 Dose: 125 mls/hr Documented By: LANA Potassium Chloride (K Alexx / Wtr) 10 meq in 100 mls @ 100 mls/hr IV Q1H JOON Stop: 04/20/24 19:29 Last Admin: 04/20/24 17:00 Dose: 100 mls/hr Documented By: LANA Discontinued Medications Sodium Chloride (Nss) 1,000 mls @ 999 mls/hr IV .Q1H1M ONE Stop: 04/20/24 16:02 Last Infusion: 04/20/24 16:14 Dose: Infused Documented By: Admin: 04/20/24 15:12 Dose: 999 mls/hr Documented By: LANA Pantoprazole Sodium 40 mg/ (Syringe) 10 mls @ 5 mls/min IV NOW ONE Stop: 04/20/24 16:31 Last Admin: 04/20/24 16:59 Dose: 5 mls/min Documented By: LANA Famotidine (Pepcid 20mg Iv Push) 20 mg in 5 mls @ 2.5 mls/min IV NOW STA Stop: 04/20/24 16:24 Last Admin: 04/20/24 16:59 Dose: 2.5 mls/min Documented By: LANA Morphine Sulfate (Morphine Sulfate 2 Mg/Ml Carp) 2 mg IV NOW STA Stop: 04/20/24 17:21 Last Admin: 04/20/24 17:35 Dose: 2 mg Documented By: LANA Ondansetron HCl (Ondansetron Inj 2 Mg/Ml 2 Ml Vial) 4 mg IV NOW STA Stop: 04/20/24 15:03 Last Admin: 04/20/24 15:12 Dose: 4 mg Documented By: LANA Sucralfate (Sucralfate 1 Gm Tab) 1 gm PO NOW STA Stop: 04/20/24 16:43 Last Admin: 04/20/24 16:59 Dose: 1 gm Documented By: LANA Medical Decision Making Medical Records Attestation: I reviewed the patient's medical records. External medical records reviewed. This is patient's third visit to the emergency department in the last 10 days. Patient had a negative CT abdomen pelvis on April 11, 2024. Labs with fluids. Patient's previous diagnoses include cannabis hyperemesis syndrome. Laboratory Data Attestation: I reviewed the patient's lab results. 04/20/24 15:13 04/20/24 15:13 Lab Results 04/20/24 Range/Units 15:13 WBC 9.79 (4.8-10.8) K/ul RBC 5.84 (4.70-6.10) M/uL Hgb 16.9 (14.0-18.0) g/dl Hct 48.3 (42.0-52.0) % MCV 82.7 (80.0-100.0) fL MCH 28.9 (25.0-34.0) pg MCHC 35.0 (32.0-36.0) g/dL RDW Std Deviation 36.7 (36.4-46.3) fL RDW Coeff of Alexei 12.1 (11.5-14.5) % Plt Count 266 (130-400) K/uL MPV 11.1 (9.4-12.4) fL Immature Gran % (Auto) 0.3 % Neut % (Auto) 75.4 % Lymph % (Auto) 15.2 % Garrett % (Auto) 7.9 % Eos % (Auto) 0.5 % Baso % (Auto) 0.7 % Neut # (Auto) 7.38 H (1.40-6.50) K/uL Lymph # (Auto) 1.49 (1.20-3.40) K/uL Garrett # (Auto) 0.77 H (0.11-0.59) K/uL Eos # (Auto) 0.05 (0.00-0.50) K/uL Baso # (Auto) 0.07 (0.00-0.20) K/uL Immature Gran # (Auto) 0.03 (0.01-0.20) K/uL Sodium 138 (136-145) mmol/L Potassium 3.1 L (3.5-5.1) mmol/L Chloride 99 (98-107) mmol/L Carbon Dioxide 23 (21-32) mmol/L Anion Gap 16 H (3-11) BUN 11 (6-23) mg/dl Creatinine 1.16 (0.6-1.4) mg/dl Est Cr Clr Drug Dosing 98.6 ml/min Est GFR ( Amer) 99.5 ml/min Est GFR (Non-Af Amer) 85.8 ml/min BUN/Creatinine Ratio 9.5 L (10-20) Glucose 106 H (70-99(Fasting)) mg/dl Calcium 9.2 (8.6-10.3) mg/dl Magnesium 2.0 (1.7-2.4) mg/dl Total Bilirubin 0.7 (0.2-1.0) mg/dl Direct Bilirubin 0.2 (0-0.2) mg/dl AST 20 (13-39) U/L ALT 29 (7-52) U/L Alkaline Phosphatase 75 (34-104) U/L Total Protein 7.2 (6.0-8.3) gm/dl Albumin 4.6 (3.4-5.0) gm/dl Lipase 9 L (11-82) U/L Imaging Data Attestation: I personally reviewed and interpreted this imaging study as follows: My Impression: Acute abdominal series: Chest x-ray negative. Airway clear. No pneumothorax. No consolidation. No cardiomegaly or cephalization.. No free air under the diaphragm. No fractures of the skeletal structures. Nonspecific bowel gas pattern no air-fluid levels. Radiologist's Impression: Chest/Abdomen X-ray 04/20/24 15:03 PA CHEST WITH ABDOMINAL SERIES CLINICAL HISTORY: Vomiting. Postprandial abdominal pain. FINDINGS: A PA chest radiograph is compared to study dated 04/16/2024. The cardiomediastinal silhouette is unremarkable. The lungs and pleural spaces are clear. No pneumothorax is seen. The bony thorax is grossly intact. Supine and erect abdominal radiographs are correlated with abdominal CT dated 04/11/2024. There is a nonobstructed abdominal bowel gas pattern. No evidence of intraperitoneal free air is seen. There are no abnormal abdominal calcifications. The lumbosacral spine and bony pelvis appear intact. IMPRESSION: 1. No active disease in the chest. 2. Nonobstructed abdominal bowel gas pattern. ACT 112: Negative or not required by law. Electronically signed by: Henry Burleson M.D. 04/20/2024 3:41 PM ECG Data Attestation: I personally reviewed and interpreted this ECG as follows: Rate (beats per minute): 97 Rhythm: normal sinus Findings: no ST depression, no ST elevation or no prolonged QT Additional Comments: [place] 88. No delta wave. [facility] Narrative 1501: The patient was evaluated in room C6. A complete history and physical exam was performed Cardiac monitoring: An order was placed for continuous cardiac monitoring. The monitor shows a rate of 90 with sinus rhythm interpreted by me 1612: Vital signs stable. Labs and imaging within normal limits. Patient states he cannot go home and keep vomiting. Patient be admitted to the [facility] service for intractable nausea vomiting. Impression & Plan Cannabinoid hyperemesis syndrome, Nausea & vomiting, Hypokalemia Discharge Plan Visit Data Chief Complaint: Abdominal Pain Stated Complaint: NAUSEA, ABDOMINAL PAIN, POSSIBLE GASTRITIS ED Provider: Rico Gan Discharge Problem: Cannabinoid hyperemesis syndrome, Nausea & vomiting, Hypokalemia Patient Disposition: Admitted As Inpatient Discharge Instructions Interventions: ED Discharge Assessment Last Done: 04/20/24 17:42 Forms Stand Alone Forms: My [facility] Prescriptions Prescriptions: No Action buspirone 10 mg tablet 10 mg PO BID oxcarbazepine 600 mg tablet 600 mg PO BID Rx Instructions: PER PT "TAKE 600 MG AT HS". olanzapine 20 mg tablet 20 mg PO HS nicotine (polacrilex) 2 mg gum 2 mg PO DIRECTED PRN (Reason: .nicotine craving) benztropine 1 mg tablet 1 mg PO BID omeprazole 20 mg capsule,delayed release(DR/EC) 20 mg PO BID escitalopram oxalate 20 mg tablet 20 mg PO DAILY sucralfate [Carafate] 100 mg/mL suspension 10 ml PO QID Qty: 420 0RF Rx Instructions: swish in mouth and swallow; use after food/drink: May substitute tablets as a slurry. famotidine 20 mg tablet 20 mg PO BID Qty: 60 0RF dicyclomine 20 mg tablet 20 mg PO QID Qty: 20 0RF promethazine 25 mg tablet 25 mg PO Q6H PRN (Reason: nausea and vomiting) Qty: 14 0RF Referrals Referrals: Grace Smith DO [Primary Care Provider] -
[2024-04-20] MEDS ORDERED: HALOPERIDOL LACTATE 5 MG/ML 1 ML VIAL IV PRN (19:36)
[2024-04-20] MEDS: NICOTINE 14 MG/24 HR PATCH TD SCH (20:50)
[2024-04-20] MEDS: SUCRALFATE 1 GM/10 ML UDC PO SCH (20:50)
[2024-04-20] MEDS: PANTOprazole 40 MG in SYRINGE 0 ML IV SCH (20:50)
[2024-04-20] MEDS: LORazepam 1 MG in SYRINGE 0.5 ML IV STA (22:53)
[2024-04-21] MEDS: FAMOTIDINE 20MG IV PUSH 20 MG/5 ML SYR IV SCH (05:28)
[2024-04-21 07:54] LABS: Basophils # (auto) 0.06 K/uL (0.00-0.20); Eosinophils # (auto) 0.14 K/uL (0.00-0.50); Eosinophils % (auto) 2.3 %; Hemoglobin 15.1 g/dl (14.0-18.0); Immature Granulocytes # (auto) 0.03 K/uL (0.01-0.20); Immature Granulocytes % (auto) 0.5 %; Lymphocytes # (auto) 2.17 K/uL (1.20-3.40); Lymphocytes % (auto) 35.3 %; Mean Corpuscular Hemoglobin 29.3 pg (25.0-34.0); Mean Corpuscular Hgb Conc 35.1 g/dL (32.0-36.0); Mean Corpuscular Volume 83.5 fL (80.0-100.0); Monocytes # (auto) 0.67 K/uL (0.11-0.59); Monocytes % (auto) 10.9 %; Neutrophils # (auto) 3.08 K/uL (1.40-6.50); Platelet Count 212 K/uL (130-400); RDW Coefficient of Variation 12.2 % (11.5-14.5); RDW Standard Deviation 37.1 fL (36.4-46.3); Red Blood Count 5.15 M/uL (4.70-6.10); White Blood Count 6.15 K/ul (4.8-10.8)
--- NOTE | 2024-04-21 07:54 | Hospitalist Progress Note ---
Date of Service April 21, 2024 Assessment & Plan (1) Epigastric abdominal pain: Plan: 28yo male presented after inpatient hospitalization [facility] 04/14 where he underwent EGD which showed gastritis/esophagitis. Hx Cannibis hyperemesis syndrome as well (last vape 04/16 upon arriving home from [place]) Provided 1L NSS, additional 1L on admission with zofran Placed on protonix IV BID, famotidine Added carafate QID given prior EGD findings Added NS +20meq for this morning while npo, diet advanced to clears. adv as tolerated Anion gap resolved on repeat labs. Monitor in AM/electrolyte replacement as needed Discussed no recent medication changes w/ his psych meds, have been resumed for this morning. Continued cessation encouraged and discussed can take several weeks. Possible addition of additional antiemetic medications (ie reglan) but would want to touch base w/ psych given his hx prior to making these changes. Will repeat EKG to montior QTC If QTC not prolonged, consider making reglan scheduled Pain control: making topical capcasin cream SCHEDULED, low dose dilaudid x 1 for today and oxycodone made available +Bowel regimen, reports hasn't moved his bowels in several days, could be making discomfort worse. Xray on admission w/ nonobstructive bowel pattern/monitor Also dealing with a lot of stress recently w/ admitting to a crime he didn't commit per mother in room 04/[address] date/etc causing increased stress consideration for psych consult in AM Continued inpatient stay (2) Bipolar 1 disorder: Plan: Denies suicidal and homicidal ideations home benztropine, BuSpar, Lexapro, and oxcarbazepine RESUMED Consider inpatient psych consult given increased stress/anxiety w/ recent charges for apparent crime as discussed above (3) Gastritis: Plan: PPI/famotidine, carafate as above avoid smoking (4) Cannabinoid hyperemesis syndrome: Plan: Will order topical capsaicin applied to the abdomen to see if this improves symptoms -- HAS NOT TRIED--> MAKING SCHEDULED See epigastric abdominal pain plan (5) Hypokalemia: Plan: K 3.1, IV replacement ordered. K 3.5 on AM labs, in IVF as above. Mag wnl and will continue to monitor on telemetry (6) Nausea & vomiting: Plan: If QTc is stable will order as needed Haldol as IV Zofran was ineffective, which was provided Home psych meds resumed and will hold off further haldol for now, monitor w/ adjustments as above and if EKG acceptable can consider scheduling reglan Plan continued inpatient stay Admission and Anticipated Discharge Date Admission Date: April 20, 2024 Supervising Physician Co-Signing Physician Notes The patient was not seen by me. The chart was reviewed. Case discussed with ROSALIND Nugent. Agree with assessment and plan Subjective Evaluated this afternoon around lunch, mom in room. Patient feeling ok this morning but then given diet and had nausea/vomiting following. Abdominal pain is epigastric/RUQ located. Prior EGD discussed w/ gastritis and continue protonix and carafate. No recent changes to psych meds but discussed he is under a lot of stress w/ recent inpatient psych stay at [facility] x 1 week and admitted to a crime he apparently didn't commit and has been stressful dealing with this. Does not want eval by psych at this time but did discuss will try pain medication and discussion about wellbutrin/other and he's heard of these but never tried in the past. Would want psych to weigh in given his other medications, which have been resumed for today. Questions/concerns addressed at this time. Physical Exam Physical Exam: General: 28o male laying in bed, mother in room, NAD but reporting epigastric/upper abdominal discomfort Head atraumatic, normocephalic, mm slightly dry, trachea midline Resp: even, unlabored, no w/c/r, on room air CV: RRR, no significant mrg, no pitting edema/calf tenderness GI: +BS, soft, +tenderness epigastric/RUQ, no warmth/rebound/rigidity MSK/Neuro: nonfocal Psych: AOx3, cooperative but flat affect Results & Data Results & Data Vital Signs (Past 12 Hours) Vital Signs Temp Pulse Pulse Resp BP Pulse Ox O2 Del Method 04/21/24 07:19 71 04/21/24 03:13 36.6 C 65 18 128/82 95 Room Air 04/20/24 23:59 36.7 C 80 20 142/91 H 97 Room Air 04/20/24 21:53 76 Laboratory Results 04/21/24 04/20/24 04/20/24 Range/Units 07:27 21:02 15:13 WBC 6.15 9.79 (4.8-10.8) K/ul RBC 5.15 5.84 (4.70-6.10) M/uL Hgb 15.1 16.9 (14.0-18.0) g/dl Hct 43.0 48.3 (42.0-52.0) % MCV 83.5 82.7 (80.0-100.0) fL MCH 29.3 28.9 (25.0-34.0) pg MCHC 35.1 35.0 (32.0-36.0) g/dL RDW Std Deviation 37.1 36.7 (36.4-46.3) fL RDW Coeff of Alexei 12.2 12.1 (11.5-14.5) % Plt Count 212 266 (130-400) K/uL MPV 11.0 11.1 (9.4-12.4) fL Immature Gran % (Auto) 0.5 0.3 % Neut % (Auto) 50.0 75.4 % Lymph % (Auto) 35.3 15.2 % [place] % (Auto) 10.9 7.9 % Eos % (Auto) 2.3 0.5 % Baso % (Auto) 1.0 0.7 % Neut # (Auto) 3.08 7.38 H (1.40-6.50) K/uL Lymph # (Auto) 2.17 1.49 (1.20-3.40) K/uL [place] # (Auto) 0.67 H 0.77 H (0.11-0.59) K/uL Eos # (Auto) 0.14 0.05 (0.00-0.50) K/uL Baso # (Auto) 0.06 0.07 (0.00-0.20) K/uL Immature Gran # (Auto) 0.03 0.03 (0.01-0.20) K/uL Sodium 138 138 (136-145) mmol/L Potassium 3.5 3.9 D 3.1 L (3.5-5.1) mmol/L Chloride 103 99 (98-107) mmol/L Carbon Dioxide 25 23 (21-32) mmol/L Anion Gap 10 16 H (3-11) BUN 7 11 (6-23) mg/dl Creatinine 0.86 D 1.16 (0.6-1.4) mg/dl Est Cr Clr Drug Dosing 133.2 98.6 ml/min Est GFR ( Amer) 137.7 99.5 ml/min Est GFR (Non-Af Amer) 118.8 85.8 ml/min BUN/Creatinine Ratio 8.1 L 9.5 L (10-20) Glucose 80 106 H (70-99(Fasting)) mg/dl Calcium 8.4 L 9.2 (8.6-10.3) mg/dl Magnesium 2.0 2.0 (1.7-2.4) mg/dl Total Bilirubin 0.6 0.7 (0.2-1.0) mg/dl Direct Bilirubin 0.2 (0-0.2) mg/dl AST 17 20 (13-39) U/L ALT 23 29 (7-52) U/L Alkaline Phosphatase 63 75 (34-104) U/L Total Protein 5.8 L 7.2 (6.0-8.3) gm/dl Albumin 3.8 4.6 (3.4-5.0) gm/dl Globulin 2.0 L (2.5-4.0) gm/dl Albumin/Globulin Ratio 1.9 (0.9-2) Lipase 9 L (11-82) U/L Diagnostic Findings Chest/Abdomen X-ray 04/20/24 15:03 PA CHEST WITH ABDOMINAL SERIES CLINICAL HISTORY: Vomiting. Postprandial abdominal pain. FINDINGS: A PA chest radiograph is compared to study dated 04/16/2024. The cardiomediastinal silhouette is unremarkable. The lungs and pleural spaces are clear. No pneumothorax is seen. The bony thorax is grossly intact. Supine and erect abdominal radiographs are correlated with abdominal CT dated 04/11/2024. There is a nonobstructed abdominal bowel gas pattern. No evidence of intraperitoneal free air is seen. There are no abnormal abdominal calcifications. The lumbosacral spine and bony pelvis appear intact. IMPRESSION: 1. No active disease in the chest. 2. Nonobstructed abdominal bowel gas pattern. ACT 112: Negative or not required by law. Electronically signed by: Henry Burleson M.D. 04/20/2024 3:41 PM PG Care Time/CCT Total # of Minutes Spent Total Time Spent with Patient: Total time spent is greater than 50% in coordination of care (as documented) at patient's floor/unit and/or counseling patient: Coding Level of Care Code 40910 SUB INP/OBS CARE 3/50MIN Diagnoses Epigastric abdominal pain R10.13 Bipolar 1 disorder F31.9 Gastritis K29.00 Chronicity: acute Gastritis bleeding: without bleeding Gastritis type: unspecified gastritis Cannabinoid hyperemesis syndrome R11.2; F12.90 Hypokalemia E87.6 Nausea & vomiting R11.2 (3) Gastritis Chronicity: acute Gastritis bleeding: without bleeding Gastritis type: unspecified gastritis Qualified Code(s): K29.00 - Acute gastritis without ble anna
[2024-04-21 08:26] LABS: Albumin Level 3.8 gm/dl (3.4-5.0); Calcium 8.4 mg/dl (8.6-10.3); Creatinine Clr Calc Pharmacy 133.2 ml/min; Est GFR (African American) 137.7 ml/min; Est GFR (Non-African American) 118.8 ml/min; Potassium 3.5 mmol/L (3.5-5.1)
[2024-04-21] MEDS: BENZTROPINE MESYLATE 1 MG TAB PO SCH (08:44)
[2024-04-21] MEDS: SUCRALFATE 1 GM/10 ML UDC PO SCH (08:44)
[2024-04-21] MEDS: OXcarbazepine 150 MG TABLET PO SCH (08:44)
[2024-04-21] MEDS: NSS + 20MEQ KCL 20 MEQ/1,000 ML BAG IV SCH (08:45)
[2024-04-21] MEDS: busPIRone 5 MG TAB PO SCH (08:45)
[2024-04-21] MEDS: ESCITALOPRAM OXALATE 20 MG TAB PO SCH (08:45)
[2024-04-21 09:25] LABS: Bilirubin,Total 0.6 mg/dl (0.2-1.0)
[2024-04-21 09:31] LABS: Albumin Globulin Ratio 1.9 (0.9-2); BUN Creatinine Ratio 8.1 (10-20); Total Protein 5.8 gm/dl (6.0-8.3)
[2024-04-21] MEDS: ONDANSETRON INJ 2 MG/ML 2 ML VIAL IV PRN (11:08)
[2024-04-21] MEDS ORDERED: hydrALAZINE HCL 20 MG/ML VIAL IV PRN (12:01)
--- NOTE | 2024-04-21 12:15 | Electrocardiogram Report ---
Test Reason : Blood Pressure : / mmHG Vent. Rate : 097 BPM Atrial Rate : 097 BPM P-R Int : 088 ms QRS Dur : 100 ms QT Int : 370 ms P-R-T Axes : 042 072 016 degrees QTc Int : 469 ms Sinus rhythm Otherwise normal ECG When compared with ECG of 16-APR-2024 15:28, T wave inversion now evident in Inferior leads Confirmed by Marito Valdez ([id number]) on 04/21/2024 12:15:25 PM Referred By: REFERRED SELF Confirmed By:Alphonso Valdez
[2024-04-21] MEDS: HYDROmorphone INJ 0.5 MG/0.5 ML SYR IV STA (13:43)
[2024-04-21] MEDS: CAPSAICIN CR 0.075% 60 GM TUBE EXT SCH (15:24)
[2024-04-21] MEDS: DOCUSATE SODIUM 100 MG CAP PO SCH (20:34)
[2024-04-21] MEDS: OLANZapine 20 MG TABLET PO SCH (20:35)
[2024-04-22] MEDS: MELATONIN 3 MG TAB PO PRN (00:15)
[2024-04-22 06:09] LABS: Basophils # (auto) 0.05 K/uL (0.00-0.20); Basophils % (auto) 0.8 %; Eosinophils # (auto) 0.12 K/uL (0.00-0.50); Eosinophils % (auto) 1.9 %; Hemoglobin 14.1 g/dl (14.0-18.0); Immature Granulocytes # (auto) 0.01 K/uL (0.01-0.20); Immature Granulocytes % (auto) 0.2 %; Lymphocytes # (auto) 2.81 K/uL (1.20-3.40); Mean Corpuscular Hemoglobin 29.3 pg (25.0-34.0); Mean Corpuscular Hgb Conc 35.3 g/dL (32.0-36.0); Mean Corpuscular Volume 83.2 fL (80.0-100.0); Mean Platelet Volume 11.2 fL (9.4-12.4); Monocytes # (auto) 0.69 K/uL (0.11-0.59); Monocytes % (auto) 11.1 %; Neutrophils # (auto) 2.56 K/uL (1.40-6.50); Platelet Count 207 K/uL (130-400); RDW Standard Deviation 36.8 fL (36.4-46.3); Red Blood Count 4.81 M/uL (4.70-6.10); White Blood Count 6.24 K/ul (4.8-10.8)
[2024-04-22 06:22] LABS: Albumin Globulin Ratio 1.8 (0.9-2); Albumin Level 3.5 gm/dl (3.4-5.0); BUN Creatinine Ratio 4.9 (10-20); Bilirubin,Total 0.4 mg/dl (0.2-1.0); Calcium 8.2 mg/dl (8.6-10.3); Creatinine Clr Calc Pharmacy 111.2 ml/min; Est GFR (African American) 114.8 ml/min; Est GFR (Non-African American) 99.1 ml/min; Potassium 3.4 mmol/L (3.5-5.1); Total Protein 5.5 gm/dl (6.0-8.3)
--- NOTE | 2024-04-22 07:30 | Hospitalist Progress Note ---
Date of Service April 22, 2024 Assessment & Plan (1) Epigastric abdominal pain: Plan: 28yo male presented after inpatient hospitalization [facility] 04/14 where he underwent EGD which showed gastritis/esophagitis. EGD noting mod-severe esophagitis -Hx Cannibis hyperemesis syndrome as well (last vape 04/16 upon arriving home from [place]) Provided 1L NSS, additional 1L on admission with zofran Improving/waxing/waning, also suspect aspect of anxiety w/ recent court issues upcoming for crime reportedly admitted to when having psychotic episode and didn't actually commit Continue protonix, famotidine BID Carafate QID NS +20meq while NPO, advanced to clears and tolerated with scheduled capsacin cream (improvement w/ such) and one time dilaudid. Diet advanced to regular this morning as had been tolerating but some increased discomfort and to continue as tolerated. Also suspect constipation making things worse, added bowel regimen and can consider softener. Does haev +BS on exam Will see if able to get EGD pathology to see if any positive testing for H Pylori potentially as contributing Consideration to lisbeth reglan, QTC wnl but is on olanzapine and SSRI but could be entertained if needed for ongoing nausea. Avoidance of marijuana/tobacco encouraged Continued stay overnight, possible dc in AM pending tolerance of PO and pain control. F/u pathology and will need repeat EGD 2 months per prior report (2) Bipolar 1 disorder: Plan: Denies suicidal and homicidal ideations home benztropine, BuSpar, Lexapro, and oxcarbazepine RESUMED Consider inpatient psych consult given increased stress/anxiety w/ recent charges for apparent crime as discussed above (3) Gastritis: Plan: PPI/famotidine, carafate as above avoid smoking f/u egd pathology (4) Cannabinoid hyperemesis syndrome: Plan: Will order topical capsaicin applied to the abdomen to see if this improves symptoms -- MADE SCHEDULED AND DOES HAVE SOME IMPROVEMENT WITH THIS> CONTINUED See epigastric abdominal pain plan (5) Hypokalemia: Plan: improving but 3.4 on AM labs and additional PO ordered given advancement of diet Mag wnl BMP in AM (6) Nausea & vomiting: Plan: If QTc is stable will order as needed Haldol as IV Zofran was ineffective --> was provided Home psych meds resumed and will hold off further haldol for now, monitor w/ adjustments as above and if EKG acceptable can consider scheduling reglan Plan continued inpatient stay, possible dc next 24hrs Admission and Anticipated Discharge Date Admission Date: April 20, 2024 Supervising Physician Co-Signing Physician Notes The patient was not seen by me. The chart was reviewed. Case discussed with ROSALIND Nugent. Agree with assessment and plan Subjective Evaluated this morning, mother in room. Had tolerated the advancement of diet without issue last evening or increased abdominal pain but does have some discomfort/nausea this morning but without vomiting. Did get does of pain medication. Using the topical cream , encouraged with gloves and avoiding touching face. Inquired if access to path from EGD to see if any positive H pylori that we may be missing but at present plans to continue current PPI/carafate and diet as tolerated. Working on bowel movement as well, reports passing gas but no bowel movement yet. Discussed can worsen abdominal pain. Mother updated in room. Questions/concerns addressed at this time. Physical Exam Physical Exam: General: 28o male laying in bed on his side, mother in room, mildly uncomfortable but NAD and just given pain medication Head atraumatic, normocephalic, mmm, trachea midline Resp: even, unlabored, no w/c/r, on room air CV: RRR, no significant mrg, no pitting edema/calf tenderness GI: +BS, soft, +tenderness RUQ, some palpable stool LLQ, no warmth/rebound/ri gidity MSK/Neuro: nonfocal Psych: AOx3, cooperative but flat affect Results & Data Results & Data Vital Signs (Past 12 Hours) Vital Signs Temp Pulse Pulse Resp BP BP Pulse Ox 04/22/24 04:07 36.5 C 69 18 143/96 H 96 04/22/24 00:06 36.6 C 86 20 141/100 H 97 04/21/24 21:59 80 04/21/24 20:20 36.8 C 91 H 20 138/95 96 O2 Del Method 04/22/24 04:07 Room Air 04/22/24 00:06 Room Air 04/21/24 21:59 04/21/24 20:20 Room Air Laboratory Results 04/22/24 04/21/24 Range/Units 05:43 07:27 WBC 6.24 6.15 (4.8-10.8) K/ul RBC 4.81 5.15 (4.70-6.10) M/uL Hgb 14.1 15.1 (14.0-18.0) g/dl Hct 40.0 L 43.0 (42.0-52.0) % MCV 83.2 83.5 (80.0-100.0) fL MCH 29.3 29.3 (25.0-34.0) pg MCHC 35.3 35.1 (32.0-36.0) g/dL RDW Std Deviation 36.8 37.1 (36.4-46.3) fL RDW Coeff of Alexei 12.0 12.2 (11.5-14.5) % Plt Count 207 212 (130-400) K/uL MPV 11.2 11.0 (9.4-12.4) fL Immature Gran % (Auto) 0.2 0.5 % Neut % (Auto) 41.0 50.0 % Lymph % (Auto) 45.0 35.3 % [place] % (Auto) 11.1 10.9 % Eos % (Auto) 1.9 2.3 % Baso % (Auto) 0.8 1.0 % Neut # (Auto) 2.56 3.08 (1.40-6.50) K/uL Lymph # (Auto) 2.81 2.17 (1.20-3.40) K/uL [place] # (Auto) 0.69 H 0.67 H (0.11-0.59) K/uL Eos # (Auto) 0.12 0.14 (0.00-0.50) K/uL Baso # (Auto) 0.05 0.06 (0.00-0.20) K/uL Immature Gran # (Auto) 0.01 0.03 (0.01-0.20) K/uL Sodium 139 138 (136-145) mmol/L Potassium 3.4 L 3.5 (3.5-5.1) mmol/L Chloride 105 103 (98-107) mmol/L Carbon Dioxide 28 25 (21-32) mmol/L Anion Gap 6 10 (3-11) BUN 5 L 7 (6-23) mg/dl Creatinine 1.03 0.86 D (0.6-1.4) mg/dl Est Cr Clr Drug Dosing 111.2 133.2 ml/min Est GFR ( Amer) 114.8 137.7 ml/min Est GFR (Non-Af Amer) 99.1 118.8 ml/min BUN/Creatinine Ratio 4.9 L 8.1 L (10-20) Glucose 98 80 (70-99(Fasting)) mg/dl Calcium 8.2 L 8.4 L (8.6-10.3) mg/dl Magnesium 2.0 2.0 (1.7-2.4) mg/dl Total Bilirubin 0.4 0.6 (0.2-1.0) mg/dl AST 19 17 (13-39) U/L ALT 25 23 (7-52) U/L Alkaline Phosphatase 58 63 (34-104) U/L Total Protein 5.5 L 5.8 L (6.0-8.3) gm/dl Albumin 3.5 3.8 (3.4-5.0) gm/dl Globulin 2.0 L 2.0 L (2.5-4.0) gm/dl Albumin/Globulin Ratio 1.8 1.9 (0.9-2) 25-OH Vitamin D Total 23.0 L (30-100) ng/ml PG Care Time/CCT Total # of Minutes Spent Total Time Spent with Patient: Total time spent is greater than 50% in coordination of care (as documented) at patient's floor/unit and/or counseling patient: Coding Level of Care Code 97747 SUB INP/OBS CARE 2/35MIN Diagnoses Epigastric abdominal pain R10.13 Bipolar 1 disorder F31.9 Gastritis K29.00 Chronicity: acute Gastritis bleeding: without bleeding Gastritis type: unspecified gastritis Cannabinoid hyperemesis syndrome R11.2; F12.90 Hypokalemia E87.6 Nausea & vomiting R11.2 (3) Gastritis Chronicity: acute Gastritis bleeding: without bleeding Gastritis type: unspecified gastritis Qualified Code(s): K29.00 - Acute gastritis without bleeding
[2024-04-22] MEDS: POTASSIUM CHLORIDE PWD 20 MEQ PACK PO ONE (08:50)
[2024-04-22] MEDS: oxyCODONE HCL IR 5 MG TAB (IMMEDIATE RELEASE) PO PRN (10:05)
[2024-04-22] MEDS: HYDROmorphone INJ 0.5 MG/0.5 ML SYR IV PRN (11:21)
--- NOTE | 2024-04-22 12:48 | Electrocardiogram Report ---
Test Reason : Blood Pressure : / mmHG Vent. Rate : 081 BPM Atrial Rate : 081 BPM P-R Int : 124 ms QRS Dur : 102 ms QT Int : 390 ms P-R-T Axes : 041 054 018 degrees QTc Int : 453 ms Normal sinus rhythm Nonspecific ST abnormality Abnormal ECG When compared with ECG of 20-APR-2024 17:34, No significant change was found Confirmed by Marito Valdez [id number] on 04/22/2024 12:48:03 PM Referred By: REFERRED SELF Confirmed By:Alphonso Valdez
[2024-04-22] MEDS: POLYETHYLENE (MIRALAX) 17 GM PACK PO SCH (15:03)
[2024-04-22] MEDS: CHOLECALCIFEROL 10 MCG (400 UNITS) TAB PO SCH (17:07)
--- NOTE | 2024-04-22 17:36 | Communication Note ---
Date of Service: April 22, 2024 Increased discomfort with advancing diet, backed down to full liquids for dinner. Having some ongoing nausea, zofran x 1 and ordered reglan and will switch his zofran to reglan/continue tele monitoring. Added back gentle IVF w/ KCL overnight given such and can re-eval in am
[2024-04-22] MEDS: METOCLOPRAMIDE HCL 5 MG TABLET PO ONE (17:59)
[2024-04-22] MEDS: NSS + 20MEQ KCL 20 MEQ/1,000 ML BAG IV SCH (18:32)
[2024-04-22] MEDS: METOCLOPRAMIDE HCL 5 MG TABLET PO SCH (21:31)
[2024-04-23 07:22] LABS: Basophils # (auto) 0.04 K/uL (0.00-0.20); Basophils % (auto) 0.6 %; Eosinophils # (auto) 0.11 K/uL (0.00-0.50); Eosinophils % (auto) 1.7 %; Hematocrit (blood only) 43.5 % (42.0-52.0); Immature Granulocytes # (auto) 0.01 K/uL (0.01-0.20); Immature Granulocytes % (auto) 0.2 %; Lymphocytes # (auto) 2.33 K/uL (1.20-3.40); Lymphocytes % (auto) 35.7 %; Mean Corpuscular Hemoglobin 28.7 pg (25.0-34.0); Mean Corpuscular Hgb Conc 34.5 g/dL (32.0-36.0); Mean Corpuscular Volume 83.3 fL (80.0-100.0); Mean Platelet Volume 11.4 fL (9.4-12.4); Monocytes # (auto) 0.65 K/uL (0.11-0.59); Neutrophils # (auto) 3.39 K/uL (1.40-6.50); Neutrophils % (auto) 51.8 %; Platelet Count 230 K/uL (130-400); RDW Standard Deviation 36.6 fL (36.4-46.3); Red Blood Count 5.22 M/uL (4.70-6.10); White Blood Count 6.53 K/ul (4.8-10.8)
--- NOTE | 2024-04-23 07:38 | Hospitalist Progress Note ---
Date of Service April 23, 2024 Assessment & Plan (1) Epigastric abdominal pain: Plan: 28yo male presented after inpatient hospitalization [facility] [place] 04/14 where he underwent EGD which showed gastritis/esophagitis. EGD noting mod-severe esophagitis -Hx Cannibis hyperemesis syndrome as well (last vape 04/16 upon arriving home from [place]) Provided 1L NSS, additional 1L on admission with zofran Improving/waxing/waning, also suspect aspect of anxiety w/ recent court issues upcoming for crime reportedly admitted to when having psychotic episode and didn't actually commit Continue protonix, famotidine BID Carafate QID NS +20meq while NPO, advanced to clears and tolerated with scheduled capsacin cream (improvement w/ such) and one time dilaudid. Diet advanced to regular this morning as had been tolerating but some increased discomfort and to continue as tolerated. Also suspect constipation making things worse, added bowel regimen and can consider softener. Does haev +BS on exam Will see if able to get EGD pathology to see if any positive testing for H Pylori potentially as contributing Consideration to lisbeth reglan, QTC wnl but is on olanzapine and SSRI but could be entertained if needed for ongoing nausea. Avoidance of marijuana/tobacco encouraged Continued stay overnight, possible dc in AM pending tolerance of PO and pain control. F/u pathology and will need repeat EGD 2 months per prior report 04/23 - resumed gentle IVF overnight/backed to full liquid diet. - K 3.4, PO replacement ordered. Mag wnl 2.0. WBC wnl, afebrile - continues on PPI, pepcid BID, carafate. - Topical capsaicin continued - KUB for eval constipation - suspect large component of anxiety regarding upcoming legal issues, did consult [facility] liaison last evening. (2) Bipolar 1 disorder: Plan: Denies suicidal and homicidal ideations home benztropine, BuSpar, Lexapro, and oxcarbazepine RESUMED Consider inpatient psych consult given increased stress/anxiety w/ recent charges for apparent crime as discussed above (3) Gastritis: Plan: PPI/famotidine, carafate as above avoid smoking f/u egd pathology (4) Cannabinoid hyperemesis syndrome: Plan: Will order topical capsaicin applied to the abdomen to see if this improves sym ptoms -- MADE SCHEDULED AND DOES HAVE SOME IMPROVEMENT WITH THIS> CONTINUED See epigastric abdominal pain plan (5) Hypokalemia: Plan: improving but 3.4 on AM labs and additional PO ordered given advancement of diet Mag wnl BMP in AM (6) Nausea & vomiting: Plan: If QTc is stable will order as needed Haldol as IV Zofran was ineffective --> was provided Home psych meds resumed and will hold off further haldol for now, monitor w/ adjustments as above and if EKG acceptable can consider scheduling reglan Plan continued inpatient stay, possible dc next 24hrs Admission and Anticipated Discharge Date Admission Date: April 22, 2024 Subjective Eval this morning, going down for KUB for eval constipation/stool burden. Passing gas but no bowel movement. Appearing improved, tolerating full liquid without further n/v. Discussed EGD findings for duodenal ulcer and will take some time with treatment. He was unaware of ulcer finding and reports was just told about gastritis. If tolerating advancement of diet will plan to dc on PPI/Pepcid/Carafate therapy. Can send for h. pylori stool antigen if moving bowels but otherwise should continue bowel regimen. Results & Data Results & Data Vital Signs (Past 12 Hours) Vital Signs Temp Pulse Pulse Resp BP Pulse Ox O2 Del Method 04/23/24 07:19 69 04/23/24 03:07 36.7 C 60 18 114/79 95 Room Air 04/22/24 23:46 36.8 C 81 20 131/87 96 Room Air 04/22/24 22:25 84 04/22/24 19:51 36.8 C 93 H 20 169/102 H 99 Room Air PG Care Time/CCT Total # of Minutes Spent Total Time Spent with Patient: Total time spent is greater than 50% in coordination of care (as documented) at patient's floor/unit and/or counseling patient: Coding Diagnoses Epigastric abdominal pain R10.13 Bipolar 1 disorder F31.9 Gastritis K29.00 Chronicity: acute Gastritis bleeding: without bleeding Gastritis type: unspecified gastritis Cannabinoid hyperemesis syndrome R11.2; F12.90 Hypokalemia E87.6 Nausea & vomiting R11.2 (3) Gastritis Chronicity: acute Gastritis bleeding: without bleeding Gastritis type: unspecified gastritis Qualified Code(s): K29.00 - Acute gastritis without bleeding
[2024-04-23 07:43] LABS: BUN Creatinine Ratio 5.6 (10-20); Calcium 8.5 mg/dl (8.6-10.3); Creatinine Clr Calc Pharmacy 127.3 ml/min; Est GFR (African American) 135.2 ml/min; Est GFR (Non-African American) 116.6 ml/min; Potassium 3.4 mmol/L (3.5-5.1)
[2024-04-23] MEDS: POTASSIUM CHLORIDE CRTAB 20 MEQ TABCR PO STA (08:59)
--- NOTE | 2024-04-23 09:48 | XRay Report ---
KUB HISTORY: Acute generalized abdominal pain eval constipation vs other COMPARISON: 04/20/2024 FINDINGS: Moderate fecal retention of the right hemicolon. Nonobstructive bowel gas pattern. No marvin l calculi. No ureteral calculi. No pneumoperitoneum or pneumatosis. No fracture. IMPRESSION: 1. Nonobstructive bowel gas pattern. 2. Moderate fecal retention of the right hemicolon. ACT 112: Negative or not required by law. The above report was generated using voice recognition software. It may contain grammatical, syntax o r spelling errors. Electronically signed by: Carlo Garcia M.D. 04/23/2024 9:47 AM
[2024-04-23] MEDS: bisacodyL 10 MG SUPP PR STA (12:06)
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
== END 2024-04-23 14:48 | disposition home or self-care (01) | DRG 392 ==
LOC: 2N 14:21 → ED 14:21 → SUATTDRO 16:41 → 2N 17:42